=== PATIENT | male | born 1975 | race Native Hawaiian/Other Pacific Islander ===

== ENCOUNTER 2016-05-17 06:37 | Emergency (ER) | payer OTHER ==
[2016-05-17 06:50] VITALS: BP 121/81
[2016-05-17] MEDS ORDERED: XYLOCAINE 1%/ EPI 1:100,000 INFILTRATI ONE (10:45)
[2016-05-17] MEDS ORDERED: BOOSTRIX IM ONE (11:10)
--- NOTE | 2016-05-17 11:14 | Emergency Department Report ---
ED Laceration HPI - HPI Chief Complaint: Extremity Injury, Upper Stated Complaint: LEFT LEG LACERATION Occurred When: Today Location: Lower Extremity (left thigh) Severity: mild Laceration Symptoms: Yes Pain (3 out of 10), No Foreign Body Sensation, No Numbness, No Weakness Other History: 40-year-old male comes in today for a laceration to his left thigh. Patient reports that a Flat metal sheet cut his left thigh. Patient is not up to date on his tetanus. ED Review of Systems ROS: Stated complaint: LEFT LEG LACERATION Other details as noted in HPI Comment: All other systems reviewed and negative Constitutional: denies: chills, fever Skin: other (laceration left thigh anterior) ED Past Medical Hx - Past Medical History Previous Medical History?: No - Surgical History Past Surgical History?: Yes Additional Surgical History: tonsillectomy - Social History Smoking Status: Former Smoker Substance Use Type: None - Medications Home Medications: Home Medications Medication Instructions Recorded Confirmed Last Taken Type Cephalexin [Keflex] 500 mg PO BID #14 capsule 05/17/16 Unknown Rx Laceration Physical Exam - Exam General: Vital signs noted. No distress. Alert and acting appropriately. Wound Length (cm): 3 Laceration Location: Lower Extremity (left eye) Laceration Exam: Yes Normal Distal CMS, No Foreign Body, No Exposed Tendon, Vessel, or Nerve, No Tendon Injury ED Course Vital Signs 05/17/16 06:45 Temperature 97.6 F Pulse Rate 71 Respiratory 18 Rate Blood Pressure 121/81 O2 Sat by Pulse 98 Oximetry - Laceration /Wound Repair Left Thigh Wound Location: lower extremity Irrigated w/ Saline (ccs): 3 Betadine Prep?: Yes Anesthesia: Lidocaine w/ Epi Volume Anesthetic (ccs): 30 Wound Debrided: minimal Wound Repaired With: sutures, Dermabond Suture Size/Type: 5:0, proline Number of Sutures: 7 Layer Closure?: No Sterile Dressing Applied?: Yes Progress: Patient tolerated procedure well. ED Medical Decision Making - Medical Decision Making Patient has been evaluated by this provider fast track. Discussed with patient that we will need to suture up the laceration. Patient declined any pain medication since he reports he is allergic to codeine. And his pains not that much. Discussed with patient that he needs to return in 7-10 days for suture removal. Discussed patient he can take [id number] Tylenol or Motrin for pain control. Patient was given a tetanus vaccination during his visit here. Patient verbalized understanding. Critical care attestation.: If time is entered above; I have spent that time in minutes in the direct care of this critically ill patient, excluding procedure time. ED Disposition Clinical Impression: Laceration Disposition: DISCHARGED TO HOME OR SELFCARE Is pt being admited?: No Does the pt Need Aspirin: No Condition: Stable Instructions: Suture Care (ED), Laceration (ED), Absorbable Suture Care (ED) Additional Instructions: Please keep wound clean and dry. Tylenol or Motrin for pain control. Please return back to have sutures removed within 7-10 days.Take antibiotics as prescribed. Prescriptions: Cephalexin [Keflex] 500 mg PO BID #14 capsule Referrals: PRIMARY CARE, [Primary Care Provider] - 3-5 Days Forms: Work/School Release Form(ED)
== END 2016-05-17 11:26 | disposition home or self-care (01) ==
LOC: ED 06:37
DX: S71.112A Laceration without foreign body, left thigh, initial encounter (principal); Z87.891 Personal history of nicotine dependence; W26.8XXA Contact with other sharp object(s), not elsewhere classified, initial encounter; Y93.89 Activity, other specified; Y92.89 Other specified places as the place of occurrence of the external cause; Y99.8 Other external cause status
CPT/HCPCS: 90471; 90715